=== PATIENT | female | born 1960 | race American Indian/Alaskan Native ===

== ENCOUNTER 2016-07-30 06:46 | Emergency (ER) | payer OTHER ==
[2016-07-30 07:15] LABS: Eosinophils % (Auto) 3.8 % (0.0-4.3)
--- NOTE | 2016-07-30 07:17 | Emergency Department Report ---
ED Altered Mental Status HPI - General Chief Complaint: Altered Mental Status Stated Complaint: POSS STROKE Time Seen by Provider: 07/30/16 06:55 Source: EMS (verbal report from ems. history from ems and boyfriend (kg lin; [phone])), RN notes reviewed, old records reviewed Limitations: Altered Mental Status, Physical Limitation - History of Present Illness Initial Comments: ems notes not available at time of chart dictation Past medical history: Hypertension, congestive heart failure, heart disease, atrial fibrillation, bypass, known history of cocaine use, known history of alcohol abuse Patient is nonverbal, not participating with physical exam or following commands. History is obtained by speaking to her boyfriend, Mr. Kg Lin As per Mr. Lin, the patient was last seen normal at 11:00 yesterday evening. He reports today before they did indulge in alcohol and cocaine. Mr. Lin further reports that at 6:00 AM, he found the patient's at the head of the bed, on the floor, acting altered. He reports that the patient was sleeping more heavily overnight, and was breathing quite deeply, and may been having some vivid dreams. EMS was contacted, and was concerned about code stroke, they felt the patient had some right-sided weakness, and a possible facial droop. Unable to ascertain exacerbating or relieving factors. Symptoms appear to be constant. MD Complaint: altered mental status, confusion, decreased responsiveness, weakness -: unknown Severity: severe Consistency of Symptoms: constant Context: alcohol abuse, drug abuse, trauma - Related Data Home Medications Medication Instructions Recorded Confirmed Last Taken AtorvaSTATin [Lipitor] 40 mg PO QHS 07/30/16 07/30/16 Unknown Metoprolol [Lopressor TAB] 50 mg PO TID 07/30/16 07/30/16 Unknown Previous Rx's Medication Instructions Recorded Last Taken Type Amiodarone [Cordarone 200 MG TAB] 200 mg PO Q12H #60 tablet 11/18/15 Unknown Rx Aspirin [Aspirin BABY CHEW TAB] 81 mg PO QDAY #30 tab.chew 11/18/15 02/12/16 Rx Folic Acid [Folvite] 1 mg PO QDAY #30 tablet 11/18/15 Unknown Rx Lisinopril [Zestril TAB] 20 mg PO QDAY #30 tablet 11/18/15 Unknown Rx Thiamine [Vitamin B-1] 100 mg PO QDAY #30 tablet 11/18/15 Unknown Rx amLODIPine [Norvasc] 2.5 mg PO QDAY #30 tablet 11/18/15 Unknown Rx chlordiazePOXIDE [Librium] 5 mg PO TID #90 capsule 11/18/15 Unknown Rx Allergies Allergy/AdvReac Type Severity Reaction Status Date / Time No Known Allergies Allergy Verified 11/12/15 07:24 ED Review of Systems ROS: Stated complaint: POSS STROKE Other details as noted in HPI Comment: Unobtainable due to pts medical conditions ED Past Medical Hx - Past Medical History Hx Hypertension: Yes Hx Congestive Heart Failure: Yes Hx Diabetes: No Hx Asthma: No Hx COPD: Yes Hx HIV: No Additional medical history: "heart dysrhythmia" - Surgical History Hx Open Heart Surgery: Yes Additional Surgical History: - Social History Smoking Status: Current Every Day Smoker - Medications Home Medications: Home Medications Medication Instructions Recorded Confirmed Last Taken Type Amiodarone [Cordarone 200 MG TAB] 200 mg PO Q12H #60 tablet 11/18/15 02/12/16 Unknown Rx Aspirin [Aspirin BABY CHEW TAB] 81 mg PO QDAY #30 tab.chew 11/18/15 02/12/16 Rx Folic Acid [Folvite] 1 mg PO QDAY #30 tablet 11/18/15 02/12/16 Unknown Rx Lisinopril [Zestril TAB] 20 mg PO QDAY #30 tablet 11/18/15 02/12/16 Unknown Rx Thiamine [Vitamin B-1] 100 mg PO QDAY #30 tablet 11/18/15 02/12/16 Unknown Rx amLODIPine [Norvasc] 2.5 mg PO QDAY #30 tablet 11/18/15 02/12/16 Unknown Rx chlordiazePOXIDE [Librium] 5 mg PO TID #90 capsule 11/18/15 02/12/16 Unknown Rx AtorvaSTATin [Lipitor] 40 mg PO QHS 07/30/16 07/30/16 Unknown History Metoprolol [Lopressor TAB] 50 mg PO TID 07/30/16 07/30/16 Unknown History ED Physical Exam - General Limitations: Altered Mental Status, Physical Limitation General appearance: lethargic - Head Head exam: Present: atraumatic, normocephalic - Eye Eye exam: Present: normal appearance, EOMI. Absent: nystagmus - ENT ENT exam: Present: normal exam, normal orophraynx - Neck Neck exam: Present: normal inspection, full ROM. Absent: tenderness, meningismus - Respiratory Respiratory exam: Present: respiratory distress, rhonchi. Absent: decreased breath sounds - Cardiovascular Cardiovascular Exam: Present: tachycardia, irregular rhythm, normal heart sounds - GI/Abdominal GI/Abdominal exam: Present: soft, normal bowel sounds. Absent: distended, tenderness, guarding, rebound, rigid, pulsatile mass - Extremities Exam Extremities exam: Present: normal inspection, normal capillary refill. Absent: tenderness, pedal edema, joint swelling, calf tenderness - Back Exam Back exam: Present: normal inspection. Absent: tenderness, CVA tenderness (R), CVA tenderness (L), muscle spasm, paraspinal tenderness, vertebral tenderness - Neurological Exam Neurological exam: Present: altered, other (the patient is nonverbal. She is not following commands. The pupils are equally reactive to light bilaterally. Patient is noted to moving left upper extremity, left lower extremity without difficulty. There is some movement against gravity with the right upper extremity and right lower extremity, but this is weaker. The patient withdraws to painful stimuli in 4 extremities. I do not detect an obvious facial droop.) - Psychiatric Psychiatric exam: Present: other (altered) - Skin Skin exam: Present: warm, dry - Assessment Assessment Interval: Baseline - Level of Consciousness 1a. Level of Consciousness: not alert, arousable - LOC Questions 1b. LOC Questions: answers no questions correctly - LOC Command 1c. LOC Commands: performs no tasks correctly - Best Gaze 2. Best Gaze: normal - Visual 3. Visual: no visual loss (Unable to assess, patient is nonverbal) - Facial Palsy 4. Facial Palsy: normal symmetrical movement (Appears to be symmetric) - Motor Arm 5b. Motor Arm Right: some gravity effort 5a. Motor Arm Left: no drift - Motor Leg 6a. Motor Leg Left: no drift 6b. Motor Leg Right: some gravity effort - Limb Ataxia 7. Limb Ataxia: amputation (Unable to assess) - Sensory 8. Sensory: mild/moderate sensory loss (Patient withdraws from painful stimuli in 4 extremities.) - Best Language 9. Best Language: mute/global aphasia - Dysarthria 10. Dysarthria: intubated or other barrier - Extinction and Inattention 11. Extinction/Inattention: profound inattention ED Course Vital Signs 07/30/16 07/30/16 07/30/16 07:08 07:11 07:50 Temperature 98 F Pulse Rate 100 H 88 Respiratory 12 18 18 Rate Blood Pressure 184/94 Blood Pressure 184/94 [Left] O2 Sat by Pulse 98 98 98 Oximetry 07/30/16 07/30/16 07/30/16 08:35 08:46 09:00 Temperature Pulse Rate 102 H 93 H Respiratory 17 12 Rate Blood Pressure 184/94 169/81 174/98 Blood Pressure [Left] O2 Sat by Pulse 95 99 96 Oximetry 07/30/16 07/30/16 07/30/16 10:00 10:38 11:00 Temperature Pulse Rate 95 H 99 H 99 H Respiratory 17 20 17 Rate Blood Pressure 162/94 162/94 191/84 Blood Pressure [Left] O2 Sat by Pulse 96 97 97 Oximetry 07/30/16 07/30/16 11:02 11:25 Temperature 98.9 F Pulse Rate 104 H Respiratory 17 Rate Blood Pressure 191/84 Blood Pressure [Left] O2 Sat by Pulse 98 Oximetry - Reevaluation(s) Reevaluation #1: 07/30/16 07:23 Differential diagnosis: Intracranial injury, cervical spine injury, subacute stroke, toxic encephalopathy, metabolic encephalopathy, pneumonia, urinary tract infection Assessment and plan: 55-year-old female with altered mental status, mild right- sided weakness, unable to ascertain exact onset of symptoms. Last known well time is 11:00 PM on the night before, and was found at 6:00 AM by her boyfriend altered. Therefore, since we are unable to obtain an exact onset of symptoms, especially with recent cocaine use, I don't believe the patient meets criteria for thrombolysis/TPA. The risks certainly outweigh the benefits. A noncontrast CT scan of the head and cervical spine are ordered. CT scan of the head is interpreted as negative. Laboratory studies, x-ray, urinalysis are pending. Reevaluation #2: 07/30/16 07:56 CT scan of the head and cervical spine are negative for acute disease. The case was discussed with the acute stroke neurologist, Dr. Newell. Given that last known well time is 11:00 PM, and the patient cannot tell us what time the symptoms started exactly, and the boyfriend cannot tell us what time the symptoms started exactly, the patient does not meet thrombolysis criteria. Dr. Newell does recommend an emergent CT angiogram of the head and neck to exclude large vessel disease. We are currently trying to contact family to obtain informed consent, but if family is unable to consent than the boyfriend and myself will administratively consented the patient for emergent CT angiogram. Patient protecting her airway at this time. Reevaluation #3: 07/30/16 10:30 ct angiogram shows thombosis on left ICA, MCA, possible dissection, although limited by motion artifact. images transmitted to [facility] neurolog[facility] team, and case is discussed with Dr Garcia, who accepts patient as a transfer. he also independently agrees that the patient is not a candidate for TPA/ thrombolysis, the patient may benefit from other experimental therapy at their facility. Patient is known to be hypertensive in the ER, but given that she is most likely a subacute stroke, both the stroke neurologist and myself agreed to allow for permissive hypertension and noted to preserve the presumed penumbra. Patient protecting her airway at this time. I appreciated the patient's CT scan is limited by artifact, but I will defer to the accepting team to repeat her CAT scan. I don't believe that she will benefit from repeat imaging here since this facility is unable to provide definitive therapy. - Lab Data Result diagrams: 07/30/16 07:04 07/30/16 07:04 Lab Results 07/30/16 07/30/16 07/30/16 Range/Units 07:04 07:04 07:04 WBC 7.0 (4.5-11.0) K/mm3 RBC 5.16 H (3.65-5.03) M/mm3 Hgb 12.3 (10.1-14.3) gm/dl Hct 40.2 (30.3-42.9) % MCV 78 L (79-97) fl MCH 24 L (28-32) pg MCHC 31 (30-34) % RDW 20.6 H (13.2-15.2) % Plt Count 213 (140-440) K/mm3 Lymph % (Auto) 35.6 H (13.4-35.0) % Mellette % (Auto) 12.9 H (0.0-7.3) % Eos % (Auto) 3.8 (0.0-4.3) % Baso % (Auto) 1.2 (0.0-1.8) % Lymph # 2.5 (1.2-5.4) K/mm3 Mellette # 0.8 (0.0-0.8) K/mm3 Eos # 0.2 (0.0-0.4) K/mm3 Baso # 0.1 (0.0-0.1) K/mm3 Seg Neutrophils % 41.2 (40.0-70.0) % Seg Neutrophils # 2.6 (1.8-7.7) K/mm3 PT 13.5 (12.2-14.9) Sec. INR 1.04 (0.87-1.13) APTT 26.4 (24.2-36.6) Sec. Thrombin Time (15.1-19.6) Sec. Sodium 140 (137-145) mmol/L Potassium 4.0 (3.6-5.0) mmol/L Chloride 106.9 (98-107) mmol/L Carbon Dioxide 20 L (22-30) mmol/L Anion Gap 17 mmol/L BUN 16 (7-17) mg/dL Creatinine 0.9 (0.7-1.2) mg/dL Estimated GFR > 60 ml/min BUN/Creatinine Ratio 17.77 % Glucose 89 (65-100) mg/dL Calcium 8.8 (8.4-10.2) mg/dL Magnesium (1.7-2.3) mg/dL Total Creatine Kinase (30-135) units/L Troponin T < 0.010 (0.00-0.029) ng/mL Urine Color (Yellow) Urine Turbidity (Clear) Urine pH (5.0-7.0) Ur Specific Gallion (1.003-1.030) Urine Protein (Negative) mg/dL Urine Glucose (UA) (Negative) mg/dL Urine Ketones (Negative) mg/dL Urine Blood (Negative) Urine Nitrite (Negative) Urine Bilirubin (Negative) Urine Urobilinogen (<2.0) mg/dL Ur Leukocyte Esterase (Negative) Urine WBC (Auto) (0.0-6.0) /HPF Urine RBC (Auto) (0.0-6.0) /HPF Urine Mucus /HPF Salicylates (2.8-20.0) mg/dL Urine Opiates Screen Urine Methadone Screen Acetaminophen (10.0-30.0) ug/mL Ur Barbiturates Screen Ur Phencyclidine Scrn Ur Amphetamines Screen U Benzodiazepines Scrn Urine Cocaine Screen U Marijuana (THC) Screen Drugs of Abuse Note Plasma/Serum Alcohol (0-0.07) gm% 07/30/16 07/30/16 07/30/16 Range/Units 07:04 07:04 07:11 WBC (4.5-11.0) K/mm3 RBC (3.65-5.03) M/mm3 Hgb (10.1-14.3) gm/dl Hct (30.3-42.9) % MCV (79-97) fl MCH (28-32) pg MCHC (30-34) % RDW (13.2-15.2) % Plt Count (140-440) K/mm3 Lymph % (Auto) (13.4-35.0) % Mellette % (Auto) (0.0-7.3) % Eos % (Auto) (0.0-4.3) % Baso % (Auto) (0.0-1.8) % Lymph # (1.2-5.4) K/mm3 Mellette # (0.0-0.8) K/mm3 Eos # (0.0-0.4) K/mm3 Baso # (0.0-0.1) K/mm3 Seg Neutrophils % (40.0-70.0) % Seg Neutrophils # (1.8-7.7) K/mm3 PT (12.2-14.9) Sec. INR (0.87-1.13) APTT (24.2-36.6) Sec. Thrombin Time 18.3 (15.1-19.6) Sec. Sodium (137-145) mmol/L Potassium (3.6-5.0) mmol/L Chloride (98-107) mmol/L Carbon Dioxide (22-30) mmol/L Anion Gap mmol/L BUN (7-17) mg/dL Creatinine (0.7-1.2) mg/dL Estimated GFR ml/min BUN/Creatinine Ratio % Glucose (65-100) mg/dL Calcium (8.4-10.2) mg/dL Magnesium 1.9 (1.7-2.3) mg/dL Total Creatine Kinase 82 (30-135) units/L Troponin T (0.00-0.029) ng/mL Urine Color (Yellow) Urine Turbidity (Clear) Urine pH (5.0-7.0) Ur Specific Gallion (1.003-1.030) Urine Protein (Negative) mg/dL Urine Glucose (UA) (Negative) mg/dL Urine Ketones (Negative) mg/dL Urine Blood (Negative) Urine Nitrite (Negative) Urine Bilirubin (Negative) Urine Urobilinogen (<2.0) mg/dL Ur Leukocyte Esterase (Negative) Urine WBC (Auto) (0.0-6.0) /HPF Urine RBC (Auto) (0.0-6.0) /HPF Urine Mucus /HPF Salicylates 0.5 L (2.8-20.0) mg/dL Urine Opiates Screen Urine Methadone Screen Acetaminophen (10.0-30.0) ug/mL Ur Barbiturates Screen Ur Phencyclidine Scrn Ur Amphetamines Screen U Benzodiazepines Scrn Urine Cocaine Screen U Marijuana (THC) Screen Drugs of Abuse Note Plasma/Serum Alcohol (0-0.07) gm% 07/30/16 07/30/16 07/30/16 Range/Units 07:11 07:11 08:50 WBC (4.5-11.0) K/mm3 RBC (3.65-5.03) M/mm3 Hgb (10.1-14.3) gm/dl Hct (30.3-42.9) % MCV (79-97) fl MCH (28-32) pg MCHC (30-34) % RDW (13.2-15.2) % Plt Count (140-440) K/mm3 Lymph % (Auto) (13.4-35.0) % Mellette % (Auto) (0.0-7.3) % Eos % (Auto) (0.0-4.3) % Baso % (Auto) (0.0-1.8) % Lymph # (1.2-5.4) K/mm3 Mellette # (0.0-0.8) K/mm3 Eos # (0.0-0.4) K/mm3 Baso # (0.0-0.1) K/mm3 Seg Neutrophils % (40.0-70.0) % Seg Neutrophils # (1.8-7.7) K/mm3 PT (12.2-14.9) Sec. INR (0.87-1.13) APTT (24.2-36.6) Sec. Thrombin Time (15.1-19.6) Sec. Sodium (137-145) mmol/L Potassium (3.6-5.0) mmol/L Chloride (98-107) mmol/L Carbon Dioxide (22-30) mmol/L Anion Gap mmol/L BUN (7-17) mg/dL Creatinine (0.7-1.2) mg/dL Estimated GFR ml/min BUN/Creatinine Ratio % Glucose (65-100) mg/dL Calcium (8.4-10.2) mg/dL Magnesium (1.7-2.3) mg/dL Total Creatine Kinase (30-135) units/L Troponin T (0.00-0.029) ng/mL Urine Color (Yellow) Urine Turbidity (Clear) Urine pH (5.0-7.0) Ur Specific Gallion (1.003-1.030) Urine Protein (Negative) mg/dL Urine Glucose (UA) (Negative) mg/dL Urine Ketones (Negative) mg/dL Urine Blood (Negative) Urine Nitrite (Negative) Urine Bilirubin (Negative) Urine Urobilinogen (<2.0) mg/dL Ur Leukocyte Esterase (Negative) Urine WBC (Auto) (0.0-6.0) /HPF Urine RBC (Auto) (0.0-6.0) /HPF Urine Mucus /HPF Salicylates (2.8-20.0) mg/dL Urine Opiates Screen Presumptive negative Urine Methadone Screen Presumptive negative Acetaminophen < 15.0 (10.0-30.0) ug/mL Ur Barbiturates Screen Presumptive negative Ur Phencyclidine Scrn Presumptive negative Ur Amphetamines Screen Presumptive negative U Benzodiazepines Scrn Presumptive negative Urine Cocaine Screen Presumptive positive U Marijuana (THC) Screen Presumptive negative Drugs of Abuse Note Disclamer Plasma/Serum Alcohol < 0.01 (0-0.07) gm% 07/30/16 Range/Units 08:50 WBC (4.5-11.0) K/mm3 RBC (3.65-5.03) M/mm3 Hgb (10.1-14.3) gm/dl Hct (30.3-42.9) % MCV (79-97) fl MCH (28-32) pg MCHC (30-34) % RDW (13.2-15.2) % Plt Count (140-440) K/mm3 Lymph % (Auto) (13.4-35.0) % Mellette % (Auto) (0.0-7.3) % Eos % (Auto) (0.0-4.3) % Baso % (Auto) (0.0-1.8) % Lymph # (1.2-5.4) K/mm3 Mellette # (0.0-0.8) K/mm3 Eos # (0.0-0.4) K/mm3 Baso # (0.0-0.1) K/mm3 Seg Neutrophils % (40.0-70.0) % Seg Neutrophils # (1.8-7.7) K/mm3 PT (12.2-14.9) Sec. INR (0.87-1.13) APTT (24.2-36.6) Sec. Thrombin Time (15.1-19.6) Sec. Sodium (137-145) mmol/L Potassium (3.6-5.0) mmol/L Chloride (98-107) mmol/L Carbon Dioxide (22-30) mmol/L Anion Gap mmol/L BUN (7-17) mg/dL Creatinine (0.7-1.2) mg/dL Estimated GFR ml/min BUN/Creatinine Ratio % Glucose (65-100) mg/dL Calcium (8.4-10.2) mg/dL Magnesium (1.7-2.3) mg/dL Total Creatine Kinase (30-135) units/L Troponin T (0.00-0.029) ng/mL Urine Color Yellow (Yellow) Urine Turbidity Clear (Clear) Urine pH 5.0 (5.0-7.0) Ur Specific Gallion 1.028 (1.003-1.030) Urine Protein <15 mg/dl (Negative) mg/dL Urine Glucose (UA) Neg (Negative) mg/dL Urine Ketones Neg (Negative) mg/dL Urine Blood Neg (Negative) Urine Nitrite Neg (Negative) Urine Bilirubin Neg (Negative) Urine Urobilinogen < 2.0 (<2.0) mg/dL Ur Leukocyte Esterase Neg (Negative) Urine WBC (Auto) < 1.0 (0.0-6.0) /HPF Urine RBC (Auto) < 1.0 (0.0-6.0) /HPF Urine Mucus Few /HPF Salicylates (2.8-20.0) mg/dL Urine Opiates Screen Urine Methadone Screen Acetaminophen (10.0-30.0) ug/mL Ur Barbiturates Screen Ur Phencyclidine Scrn Ur Amphetamines Screen U Benzodiazepines Scrn Urine Cocaine Screen U Marijuana (THC) Screen Drugs of Abuse Note Plasma/Serum Alcohol (0-0.07) gm% 07/30/16 07:58 Atrial flutter, variable conduction, ventricular rate variable, normal axis, normal intervals, poor R-wave progression noted, not morphologically consistent with STEMI. - Radiology Data Radiology results: report reviewed, image reviewed Noncontrast CT scan of the head and cervical spine are negative. X-ray chest negative for acute disease, status post median sternotomy. CT angiogram of the head and neck is limited, but there appears to be partial thrombosis of the terminus of the left internal carotid artery, which extends into the proximal left middle cerebral artery as outlined. A small dissection is also a possibility and not excluded. - NEXUS Criteria Focal neurological deficit present: Yes Midline spinal tenderness present: No Altered level of consciousness: Yes Intoxication present: No Distracting injury present: No NEXUS results: C-Spine cannot be cleared clinically by these results. Imaging is required. Critical Care Time: Yes Critical care time in (mins) excluding proc time.: 35 Critical care attestation.: If time is entered above; I have spent that time in minutes in the direct care of this critically ill patient, excluding procedure time. Critical Care Time: Critical care time includes multiple bedside evaluations, interpretation of laboratory studies, radiology studies, and time spent discussing the patient's care with multiple consulting services including stroke neurology, and endovascular stroke neurology. This excludes procedure time. ED Disposition Clinical Impression: Altered mental status Qualifiers: Altered mental status type: unspecified Qualified Code(s): R41.82 - Altered mental status, unspecified Disposition: DC/TX SHORT-TERM GEN HOSP INPT Is pt being admited?: No Does the pt Need Aspirin: Yes Condition: Fair Referrals: PRIMARY CARE, [Primary Care Provider] - 3-5 Days
[2016-07-30 07:20] LABS: Basophils % (Auto) 1.2 % (0.0-1.8); INR 1.04 (0.87-1.13); Mean Corpuscular HGB Conc 31 % (30-34); Mean Corpuscular Volume 78 fl (79-97); Platelet Count 213 K/mm3 (140-440); Red Blood Count 5.16 M/mm3 (3.65-5.03)
--- NOTE | 2016-07-30 07:20 | Cat Scan Report ---
FINAL REPORT PROCEDURE: CT HEAD/BRAIN WO CON TECHNIQUE: Computerized tomography of the head was performed without contrast material. HISTORY: neuro deficits < 6hrs or sx present upon awakening COMPARISON: No prior studies are available for comparison. FINDINGS: Skull and scalp: Normal. Paranasal sinuses: Normal. Ventricles and subarachnoid spaces: Normal. Cerebrum: No evidence of hemorrhage, acute infarction or mass . Cerebellum and brainstem: No evidence of hemorrhage, acute infarction or mass. Vasculature: Normal. Comments: None. IMPRESSION: Normal Examination
[2016-07-30 07:21] LABS: Partial Thromboplastin Time 26.4 Sec. (24.2-36.6)
[2016-07-30 07:28] LABS: Anion Gap 17 mmol/L; BUN/Creatinine Ratio 17.77; Blood Urea Nitrogen 16 mg/dL (7-17); Calcium 8.8 mg/dL (8.4-10.2); Carbon Dioxide 20 mmol/L (22-30); Chloride 106.9 mmol/L (98-107); Glucose 89 mg/dL (65-100); Hematocrit 40.2 % (30.3-42.9); Hemoglobin 12.3 gm/dl (10.1-14.3); Mean Corpuscular Hemoglobin 24 pg (28-32); Red Cell Distribution Width 20.6 % (13.2-15.2); Sodium 140 mmol/L (137-145)
--- NOTE | 2016-07-30 07:49 | Cat Scan Report ---
FINAL REPORT PROCEDURE: CT CERVICAL SPINE WO CON TECHNIQUE: Computerized tomography of the cervical spine was performed from the skull base to T1 without contrast material. HISTORY: FALL COMPARISON: No prior studies are available for comparison. FINDINGS: C1-2: No significant abnormality. C2-3: No significant abnormality. C3-4: No significant abnormality. C4-5: No significant abnormality. C5-6: There is loss of disc height with moderate osteophytic ridging.. C6-7: No significant abnormality. C7-T1: No significant abnormality. Other: There is no fracture or malalignment. Prevertebral soft tissues are normal in thickness. There is a right pleural effusion.. IMPRESSION: No significant abnormality.
[2016-07-30] MEDS ORDERED: NACL ONE (07:53)
[2016-07-30 08:01] LABS: Magnesium 1.9 mg/dL (1.7-2.3)
--- NOTE | 2016-07-30 08:53 | Cat Scan Report ---
CTA NECK: CTA HEAD: HISTORY: CVA. TECHNIQUE: Helical CT following IV contrast. Sagittal and coronal reformatted images. 3D volume rendering technique. Stenosis was calculated using NASCET criteria. FINDINGS: This exam is suboptimal at the level of the skull base including the mid and distal internal carotid arteries and proximal bilateral vertebral arteries secondary to patient motion and confusion. The visualized aortic arch is unremarkable and widely patent. The innominate and proximal bilateral subclavian arteries are widely patent with less than 20% stenosis. Within the right carotid system, there is mild to moderate partially calcified plaque near the carotid bifurcation but no hemodynamically significant stenosis. There is less than 30% stenosis in the visualized right carotid system. Within the left carotid system, there is moderate to severe partially calcified plaque in the left carotid bulb extending to the left ICA with stenosis estimated at 50-60%. Consider correlation with carotid ultrasound. The remaining visualized left ICA is patent. There appears to be a partial thrombosis of the terminus of the left ICA extending into the left MCA with occlusion or near occlusion of the left M1 segment. This may represent partial thrombosis. I cannot entirely exclude a small arterial dissection in this area. There is reconstitution of flow in the distal left MCA branches although it is decreased compared to the right side. The right MCA, right MARIEL, left MARIEL and vertebrobasilar system are patent with less than 20% stenosis. No aneurysm. Impression: Limited exam secondary to patient motion the level of the skull base. However, there appears to be partial thrombosis of the terminus of the left ICA which extends into the proximal left MCA as outlined above. These findings were discussed with Dr. Slaughter in the emergency department at 0830 hours. The decision was made to transfer the patient to the appropriate care facility and not repeat the CTA.
[2016-07-30 09:06] LABS: Urine Drugs of Abuse Note Disclamer
--- NOTE | 2016-07-30 09:26 | XRay Report ---
AP CHEST HISTORY: Altered mental status. FINDINGS: Previous CABG changes and valve replacement are unchanged since 02/02/16. There is borderline heart size. The lungs are generally clear. No evidence for pneumonia, large pleural effusion or pneumothorax. Focal scarring in the lingular region is noted. IMPRESSION: No acute cardiopulmonary process.
[2016-07-30 09:50] LABS: Bilirubin,Urine NEG (Negative); Blood,Urine NEG (Negative); Ketones,Urine NEG (Negative); Leukocyte Esterase,Urine NEG (Negative); Mucus,Urine FEW /HPF; Nitrite,Urine NEG (Negative); Protein,Urine <15 mg/dL mg/dL (Negative); RBC,Urine < 1.0 /HPF (0.0-6.0); Urobilinogen,Urine < 2.0 mg/dL (<2.0); WBC,Urine < 1.0 /HPF (0.0-6.0)
[2016-07-30] MEDS ORDERED: ASPIRIN PR ONE (10:33)
[2016-07-30 11:07] VITALS: BP 191/84
== END 2016-07-30 11:52 | disposition short-term general hospital (02) ==
LOC: ED 06:46
DX: R41.82 Altered mental status, unspecified (principal); I10 Essential (primary) hypertension; I50.9 Heart failure, unspecified; J44.9 Chronic obstructive pulmonary disease, unspecified; F17.200 Nicotine dependence, unspecified, uncomplicated
CPT/HCPCS: 36415; 51702; 70450; 70496; 70498; 71010; 72125; 80048; 80307; 81001; 82550; 83735; 84484; 85025; 85610; 85670; 85730; 93005; 93010; 99291; G0480; Q9967; 80320; 82962

== ENCOUNTER 2017-12-29 20:44 | Emergency (ER) | payer MEDICAID ==
[~2017-12-29 20:44] MED LIST: ADRENALIN ONE; SODIUM BICARBONATE IV ONE
--- NOTE | 2017-12-29 21:31 | Emergency Department Report ---
ED CPR HPI - General Stated Complaint: CARDIAC ARREST Time Seen by Provider: 12/29/17 20:58 Source: EMS Mode of arrival: Stretcher Limitations: Other (unresponsive) - History of Present Illness Initial Comments: Ms Lynn is a 57 year-odl woman brought in during cardiac arrest. Call went out at 1955 for her being unresponsive. EMS arrived at 2009 and she was pulseless, apneic and not in rigor. intubated in the field with 7-0 ETT. chest compressions initiated. received narcan, sodium bicarb, epinephrine x 4 in the field. found in aystole and presented to ED in asystole. MD Complaint: other (pulseless, apneic) Onset/Timin,010 Bystander CPR Performed: No Initial Findings in the Field: no respirations, no pulse, other rhythm (asystole ) ROSC in the Field: No Associated Injuries: No Treatments Prior to Arrival: intubation, chest compressions, epinephrine mgs # ( 4 x 1mg), sodium bicarbonate (1 vial), glucose (d50) - Related Data Previous Rx's Medication Instructions Recorded Last Taken Type Apixaban [Eliquis] 5 mg PO Q12HR #30 tablet 07/11/17 Unknown Rx Lisinopril [Zestril TAB] 2.5 mg PO QDAY #30 tablet 07/11/17 Unknown Rx Metoprolol [Lopressor TAB] 50 mg PO Q8HR #30 tablet 07/11/17 Unknown Rx Pantoprazole [Protonix TAB] 40 mg PO QDAY #30 tablet 07/11/17 Unknown Rx Allergies Allergy/AdvReac Type Severity Reaction Status Date / Time No Known Allergies Allergy Verified 11/12/15 07:24 ED Review of Systems ROS: Stated complaint: CARDIAC ARREST Other details as noted in HPI Comment: Unobtainable due to pts medical conditions ED Past Medical Hx - Past Medical History Hx Hypertension: Yes Hx CVA: Yes Hx Heart Attack/AMI: Yes Hx Congestive Heart Failure: Yes Hx Diabetes: No Hx Asthma: No Hx COPD: Yes Hx HIV: No Additional medical history: "heart dysrhythmia" - Surgical History Hx Open Heart Surgery: Yes Additional Surgical History: , CABG in 2016 - Social History Smoking Status: Unknown if ever smoked - Medications Home Medications: Home Medications Medication Instructions Recorded Confirmed Last Taken Type Apixaban [Eliquis] 5 mg PO Q12HR #30 tablet 07/11/17 Unknown Rx Lisinopril [Zestril TAB] 2.5 mg PO QDAY #30 tablet 07/11/17 Unknown Rx Metoprolol [Lopressor TAB] 50 mg PO Q8HR #30 tablet 07/11/17 Unknown Rx Pantoprazole [Protonix TAB] 40 mg PO QDAY #30 tablet 07/11/17 Unknown Rx ED Physical Exam - General General appearance: other (unresponsive) - Head Head exam: Present: atraumatic, normocephalic - Eye Eye exam: Present: other (pupils fixed and dilated) - ENT ENT exam: Present: other (ETT in place) - Neck Neck exam: Present: normal inspection - Respiratory Respiratory exam: Present: other (bilateral breath sounds. no crepitus. no bruising) - Cardiovascular Cardiovascular Exam: Present: other (pulsless, cold extremities) - Expanded Cardiovascular Exam Expanded 1 - midline sternotomy scar - GI/Abdominal GI/Abdominal exam: Present: soft. Absent: distended - Extremities Exam Extremities exam: Present: normal inspection. Absent: pedal edema - Back Exam Back exam: Present: normal inspection, other (no bruising, no evidence of trauma ). Absent: rash noted - Skin Skin exam: Present: dry, intact, normal color. Absent: rash ED Medical Decision Making - Medical Decision Making ms Lynn is a 57 year-old woman who presents via EMS with cardiac arrest. Likely down since 1950, EMS arrived 2009. Found glass pipe used for drugs under patient. Asystole. Arrived with ETT in place and confirmed with bilateral breath sounds and absent breath sounds over epigastrium. Palpable pulse with CPR. no evidence of trauma on exam. Epi x 3, bicab, narcan, D50 prior to arrival. Placed on monitor, first pulse check reveals asystole with cardiac standstill on bedside echo. compressions resumed. given epinephrine x 3. sodium bicarb x 1. please see nursing documentation for timing of medications. No evidence of trauma on exam. no crepitus, bilateral breath sounds. no chest tube placed. remained in asystole and at final pulse check, remained with cardiac standstill by bedside echo. time of 2043. known cardiac history. appeared to be using drugs per report from EMS. Initially dispatched as a call for a body, however EMS noted she was not in rigor mortis. CPR initiated. 35 minutes of witnessed downtime in which she remained in asystole. resuscitative efforts terminated at 2043. Critical care attestation.: If time is entered above; I have spent that time in minutes in the direct care of this critically ill patient, excluding procedure time. ED Disposition Clinical Impression: Cardiac arrest Disposition: DC-20 Is pt being admited?: No Condition: Undetermined Referrals: PRIMARY CARE, [Primary Care Provider] - 3-5 Days
== END 2017-12-29 22:37 ==
LOC: ED 20:44
DX: I46.9 Cardiac arrest, cause unspecified (principal); I11.0 Hypertensive heart disease with heart failure; I50.9 Heart failure, unspecified; I25.2 Old myocardial infarction; J44.9 Chronic obstructive pulmonary disease, unspecified; Z95.1 Presence of aortocoronary bypass graft
CPT/HCPCS: 92950; 99285; J0171